=== PATIENT | male | born 1990 | race Two or more races ===

== ENCOUNTER 2021-04-10 21:44 | Emergency (ER) | payer OTHER ==
[~2021-04-10] VITALS: Ht 172.7 cm; Wt 72.6 kg
[2021-04-10] MEDS ORDERED: BUPROPION XL300 MG (22:00)
== END 2021-04-10 23:38 | disposition home or self-care (01) ==
LOC: ER 21:44
DX: S61.215A Laceration without foreign body of left ring finger without damage to nail, initial encounter (principal); W45.8XXA Other foreign body or object entering through skin, initial encounter; Y92.010 Kitchen of single-family (private) house as the place of occurrence of the external cause